=== PATIENT | male | born 1960 | race Caucasian/White ===

== ENCOUNTER → 2021-09-11 | Outpatient (CLI) | payer BC ==
[~2021-09-11] MED LIST: ALDACTONE 25MG25 MG PO; AUGMENTIN 875-1 EACH PO; CARDIZEM60 MG PO; CLARITIN10 MG PO; ELIQUIS5 MG PO; GLUCOPHAGE 500500 MG PO; GLUCOTROL5 MG PO; GUANFACINE HCL2 MG PO; IBUPROFEN800 MG PO; LEVAQUIN500 MG PO; LIPITOR TAB 2020 MG PO; LISINOPRIL20 MG PO; LOPRESSOR 25 MG25 MG PO; MECLIZINE HCL25 MG PO; NORCO 7.5-3251 EACH PO; OMEPRAZOLE40 MG PO; SINGULAIR10 MG PO; TENORMIN 50 MG50 MG PO; TOUJEO MAX300 UNIT/1 SQ; VITAMIN D50000 UNIT PO; ZOFRAN 4 MG TAB4 MG PO; ZOFRAN4 MG PO; ZYLOPRIM 100 M100 MG PO; ZYRTEC10 M3 PO
== END ==
LOC: NM 08:00
DX: I20.9 Angina pectoris, unspecified (principal); I51.7 Cardiomegaly; I51.9 Heart disease, unspecified
CPT/HCPCS: ECHO; 78452; 93017; 93306; A9502; J2785

== ENCOUNTER 2021-09-14 07:18 | Emergency (ER) | payer BC ==
[~2021-09-14 07:18] MED LIST changes: -LOPRESSOR 25 MG25 MG PO; -ZOFRAN 4 MG TAB4 MG PO
[2021-09-14 08:21] LABS: HEMOGLOBIN 16.5 gm/dl (14.0-17.5); RED BLOOD COUNT 5.26 M/UL (4.20-5.50); WHITE BLOOD COUNT 5.4 K/UL (4.5-11.0)
[2021-09-14 09:05] LABS: BUN/CREATININE RATIO 20 (0-10)
[2021-09-14] MEDS ORDERED: ELIQUIS5 MG PO (11:18)
[2021-09-14] MEDS ORDERED: ZOFRAN 4 MG TAB4 MG PO (11:18)
[2021-09-14] MEDS ORDERED: LOPRESSOR 25 MG25 MG PO (11:18)
== END 2021-09-14 11:27 | disposition home or self-care (01) ==
LOC: ER1 07:18
PROVIDERS: Physician Assistant Medical
DX: I48.91 Unspecified atrial fibrillation (principal); K85.90 Acute pancreatitis without necrosis or infection, unspecified; E11.9 Type 2 diabetes mellitus without complications; I10 Essential (primary) hypertension; Z79.82 Long term (current) use of aspirin
CPT/HCPCS: 71045; 80053; 82550; 82553; 83690; 83735; 84100; 84439; 84443; 84484; 85025; 93005; 96374; 99285; J2405

== ENCOUNTER → 2021-09-23 | Outpatient (CLI) | payer BC ==
[~2021-09-23] MED LIST changes: +LOPRESSOR 25 MG25 MG PO; +ZOFRAN 4 MG TAB4 MG PO
== END ==
LOC: HEART 5 08:54
DX: R00.2 Palpitations (principal); Z98.890 Other specified postprocedural states

== ENCOUNTER → 2021-11-16 | Outpatient (CLI) | payer BC ==
[~2021-11-16] MED LIST changes: +ASPIRIN EC81 MG PO; +ELIQUIS 5 MG TAB5 MG PO; +ISOSORBIDE DINI30 MG PO; +MELOXICAM7.5 MG PO; +PRILOSEC10 M1 PO; +TRULICITY1.5 MG/0.5 SQ
[2021-11-16 10:15] LABS: HEMOGLOBIN 14.9 gm/dl (14.0-17.5); RED BLOOD COUNT 4.65 M/UL (4.20-5.50); WHITE BLOOD COUNT 7.3 K/UL (4.5-11.0)
[2021-11-16 10:45] LABS: BUN/CREATININE RATIO 20 (0-10)
== END ==
LOC: LAB 09:35
PROVIDERS: Internal Medicine Cardiovascular Disease
DX: I10 Essential (primary) hypertension (principal); I42.9 Cardiomyopathy, unspecified; I20.9 Angina pectoris, unspecified; R94.39 Abnormal result of other cardiovascular function study
CPT/HCPCS: 36415; 71046; 80048; 85025

== ENCOUNTER → 2021-11-18 | Outpatient (CLI) | payer BC | LOC: CATH 11:27 | DX: I25.118 Atherosclerotic heart disease of native coronary artery with other forms of angina pectoris (principal); I10 Essential (primary) hypertension; E11.65 Type 2 diabetes mellitus with hyperglycemia; I42.9 Cardiomyopathy, unspecified; E78.5 Hyperlipidemia, unspecified; K21.9 Gastro-esophageal reflux disease without esophagitis; Z79.01 Long term (current) use of anticoagulants; Z79.82 Long term (current) use of aspirin; Z79.84 Long term (current) use of oral hypoglycemic drugs; Z79.899 Other long term (current) drug therapy | CPT/HCPCS: 99152; 99153; C1725; C1769; C1894; J1644; J2250; J3010; J7040; Q9967 ==